=== PATIENT | female | born 2000 | race Caucasian/White ===

== ENCOUNTER 2023-05-20 01:34 | Emergency (ER) | payer OTHER, SELFPAY ==
[2023-05-20] MEDS ORDERED: Ondansetron PF 4 MG/2 ML Vial ONE (02:02)
== END 2023-05-20 04:28 | disposition home or self-care (01) ==
LOC: ERS 01:34
DX: R11.0 Nausea (principal)
CPT/HCPCS: 96361; 96374; J2405